=== PATIENT | female | born 1995 | race Caucasian/White ===

== ENCOUNTER 2019-10-01 21:12 | Outpatient (CLI) | payer OTHER ==
[2019-10-01] MEDS ORDERED: PRENATAL CAPLE1 EAC1 PO (21:50)
== END 2019-10-02 13:59 | disposition home or self-care (01) ==
LOC: OBS/DEL 21:12
PROVIDERS: ATTEND Obstetrics & Gynecology
DX: O26.893 Other specified pregnancy related conditions, third trimester (principal); Z04.1 Encounter for examination and observation following transport accident; O36.8131 Decreased fetal movements, third trimester, fetus 1; W18.39XA Other fall on same level, initial encounter; Y93.89 Activity, other specified; Y92.89 Other specified places as the place of occurrence of the external cause; Y99.8 Other external cause status

== ENCOUNTER 2019-10-12 10:18 | Outpatient (CLI) | payer OTHER ==
[~2019-10-12 10:18] MED LIST: PRENATAL CAPLE1 EAC1 PO
== END 2019-10-12 14:52 | disposition home or self-care (01) ==
LOC: OBS/DEL 10:18
PROVIDERS: ATTEND Obstetrics & Gynecology
DX: O36.8131 Decreased fetal movements, third trimester, fetus 1 (principal); O99.213 Obesity complicating pregnancy, third trimester; O26.843 Uterine size-date discrepancy, third trimester